=== PATIENT | female | born 1950 | race Hispanic/Latino ===

== ENCOUNTER → 2022-10-17 | Outpatient (CLI) | payer OTHER ==
[~2022-10-17] MED LIST: ACET-66 PO; CALC1TAB2 PO; FERR-82 PO; HYDR25TA PO; IOHEXOL 350 MG/ML 100ML INFUS..BTL IV ONE; LOVA10TA2 PO; OMEP20CA12 PO; TRAM50TA4 PO
== END | disposition home or self-care (01) ==
LOC: RAH 09:31
PROVIDERS: ATTEND Family Medicine
DX: R51.9 Headache, unspecified (principal); S09.90XS Unspecified injury of head, sequela; X58.XXXS Exposure to other specified factors, sequela
CPT/HCPCS: 70470; Q9967

== ENCOUNTER → 2025-05-29 | Outpatient (CLI) | payer OTHER ==
[~2025-05-29] MED LIST changes: -IOHEXOL 350 MG/ML 100ML INFUS..BTL IV ONE
--- NOTE | 2025-05-29 23:57 | HMCIMG ---
EXAM: MRI of the Brain Without Contrast CLINICAL INDICATION: Moderate dementia in other diseases, classified elsewhere. TECHNIQUE: Multiplanar, multisequence MRI of the brain was performed without intravenous contrast. COMPARISON: Prior CT scan of the head dated October 17, 2022. FINDINGS: Brain Parenchyma and Ventricular System: There is diffuse prominence of the cerebral sulci and basal cisterns with ex vacuo prominence of the ventricular system, consistent with age-appropriate generalized neuroparenchymal volume loss. No disproportionate frontal or temporal lobar atrophy is identified. No mass lesion or acute intracranial hemorrhage is seen. White Matter: Confluent periventricular and deep white matter T2/FLAIR hyperintensities are present, consistent with chronic small vessel ischemic changes, Fazekas grade III. Diffusion and Susceptibility: No diffusion restriction is identified to suggest acute infarction. No abnormal foci of susceptibility artifact are seen on gradient-echo sequences. Vascular Structures: Normal intracranial arterial flow voids are preserved. There is no imaging evidence of dural venous sinus thrombosis. Posterior Fossa: The brainstem and cerebellum demonstrate normal morphology and signal intensity. Sellar and Suprasellar Region: The sellar and suprasellar structures are unremarkable. Extra-axial Spaces: No extra-axial collection is identified. Paranasal Sinuses and Mastoid Air Cells: Minimal mucosal thickening is present in the right maxillary sinus, ethmoid air cells, and right frontal sinus. The mastoid air cells are clear. IMPRESSION: * No acute intracranial abnormality. * Moderate chronic small vessel ischemic disease with periventricular white matter changes, Fazekas grade III. * Age-appropriate generalized cerebral volume loss without focal frontal or temporal lobar predominance. Comparison: No interval change compared with the prior CT scan of the head dated October 17, 2022. /[place]
== END | disposition home or self-care (01) ==
LOC: RAH 15:23
PROVIDERS: ATTEND Family Medicine
DX: I67.82 Cerebral ischemia (principal); F02.B18 Dementia in other diseases classified elsewhere, moderate, with other behavioral disturbance
CPT/HCPCS: 70551